=== PATIENT | female | born 1990 | race Caucasian/White ===

== ENCOUNTER 2024-11-18 07:36 | Day surgery (SDC) | payer MEDICARE, BC, OTHER ==
[~2024-11-18] VITALS: Ht 162.6 cm; Wt 130.0 kg
[2024-11-18] VITALS (12 sets, daily range): BP systolic 115–131; BP diastolic 60–79
[~2024-11-18 07:36] MED LIST: Buspirone HCl15 MG PO; EPIPEN0.3 MG/0.1 IM; FLUO10 PO; MONT10T PO; OMEP20ER PO
[2024-11-18] MEDS ORDERED: Morphine Sulfate 4 MG/1 ML Injection IV PRN (08:15)
[2024-11-18] MEDS ORDERED: FentaNYL Citrate 50 MCG/ML 2 ML Injection IV PRN ×2 (08:15→08:20)
[2024-11-18] MEDS ORDERED: Metoclopramide HCl 5MG / ML 2ML Vial IV PRN (08:15)
[2024-11-18] MEDS ORDERED: HYDROmorphone HCl/Pf 1MG SYR IV PRN (08:15)
[2024-11-18] MEDS ORDERED: Ondansetron HCl 2 MG / ML 2ML Vial IV PRN ×2 (08:20→10:25)
--- NOTE | 2024-11-18 08:30 | NUR ---
Ambulatory in Day Surgery History, Chart, Medications and Allergies reviewed before start of procedure. Pre-Op teaching done. Pt verbalizes understanding. Patient States Post-Procedure ride home has been arranged.
[2024-11-18] MEDS ORDERED: Midazolam HCl 1MG / ML 2ML Vial ONE (08:47)
[2024-11-18] MEDS ORDERED: Sugammadex Sodium 200 MG/2ML SDV (100 MG/ML) ONE (09:32)
--- NOTE | 2024-11-18 09:41 | NUR ---
11/18/24 0941 JOAO SHIPMAN 52MG IUD PLACED, LOT #[id number] EXP 02/2029
[2024-11-18] MEDS ORDERED: FentaNYL Citrate 50 MCG/ML 2 ML Injection ONE ×3 (09:51→11:08)
[2024-11-18] MEDS ORDERED: Metoclopramide HCl 5MG / ML 2ML Vial ONE ×2 (09:51→11:08)
[2024-11-18] MEDS ORDERED: HYDROmorphone HCl/Pf 1MG SYR ONE (09:52)
--- NOTE | 2024-11-18 10:45 | NUR ---
REPORT RECEIVED FROM ALANNAH GUZMAN. VSS. PT ON RA. PT A&OX4. PT ABLE TO REPOSITION SELF IN BED. PT REQUESTING PO FLUIDS AND TOLERATING THEM WELL. PT HAS JADYN PAD IN PLACE WITH SCANT BLEEDING NOTED. PT UP TO BR. PT REP 2/10 AMILCAR PAIN, DENIES NAUSEA.
[2024-11-18] MEDS ORDERED: Ondansetron HCl 2 MG / ML 2ML Vial ONE (11:08)
== END 2024-11-18 10:59 | disposition home or self-care (01) ==
LOC: ORSCMMR 07:36 → ORD 08:45 → ORSCMMR 10:59
PROVIDERS: Obstetrics & Gynecology
PROC: 0UDB8ZX Extraction of Endometrium, Via Natural or Artificial Opening Endoscopic, Diagnostic (ICD-10-PCS; principal; 2024-11-18 08:45)
PROC: 0UH97HZ Insertion of Contraceptive Device into Uterus, Via Natural or Artificial Opening (ICD-10-PCS; principal; 2024-11-18 08:45)
DX: N93.9 Abnormal uterine and vaginal bleeding, unspecified (principal); Z30.430 Encounter for insertion of intrauterine contraceptive device; E28.2 Polycystic ovarian syndrome; G47.33 Obstructive sleep apnea (adult) (pediatric); J45.909 Unspecified asthma, uncomplicated; K21.9 Gastro-esophageal reflux disease without esophagitis; F41.9 Anxiety disorder, unspecified; E66.01 Morbid (severe) obesity due to excess calories; Z68.42 Body mass index [BMI] 45.0-49.9, adult; Z79.899 Other long term (current) drug therapy
CPT/HCPCS: 88305; J1171; J2250; J2405; J2704; J2765; J3010; J7120; J7297